=== PATIENT | female | born 1955 | race Two or more races ===

== ENCOUNTER 2020-05-26 05:30 | Day surgery (SDC) | payer OTHER ==
[~2020-05-26 05:30] MED LIST: IRBESARTAN300 MG PO; OMEPRAZOLE40 MG PO; PANADOL EXTRA500 MG PO; SPIRONOLACTONE25 MG PO; TOPROL XL25 M1 PO
[2020-05-26] MEDS ORDERED: MORGIDOX100 MG PO (09:09)
[2020-05-26] MEDS ORDERED: Tylenol #3 PO (09:09)
== END 2020-05-26 12:00 | disposition home or self-care (01) ==
LOC: CIR.AMB 05:30
PROVIDERS: ATTEND Obstetrics & Gynecology
DX: N84.0 Polyp of corpus uteri (principal); Z20.828 Contact with and (suspected) exposure to other viral communicable diseases

== ENCOUNTER 2020-09-01 08:45 | Inpatient (IN) | payer OTHER ==
[~2020-09-01] VITALS: Ht 160 cm; Wt 98.9 kg
[~2020-09-01 08:45] MED LIST changes: +MORGIDOX100 MG PO; +Tylenol #3 PO
[2020-09-11] MEDS ORDERED: Tylenol #3 PO (11:20)
[2020-09-11] MEDS ORDERED: NAPR500T14 PO (11:21)
== END 2020-09-11 12:39 | disposition home or self-care (01) | DRG 743 ==
LOC: O/R 09-08 05:46 → OB/GYN 09-08 07:00 → SURG 09-08 17:30
PROVIDERS: ADMIT Obstetrics & Gynecology; ATTEND Obstetrics & Gynecology
PROC: 0UB70ZZ Excision of Bilateral Fallopian Tubes, Open Approach (ICD-10-PCS; 2020-09-08)
PROC: 0UT20ZZ Resection of Bilateral Ovaries, Open Approach (ICD-10-PCS; 2020-09-08)
PROC: 0TJB8ZZ Inspection of Bladder, Via Natural or Artificial Opening Endoscopic (ICD-10-PCS; 2020-09-08)
PROC: 0UT90ZZ Resection of Uterus, Open Approach (ICD-10-PCS; principal; 2020-09-08 07:00)
DX: D25.1 Intramural leiomyoma of uterus (principal); N72 Inflammatory disease of cervix uteri; N83.312 Acquired atrophy of left ovary; K21.9 Gastro-esophageal reflux disease without esophagitis; G89.18 Other acute postprocedural pain; I10 Essential (primary) hypertension

== ENCOUNTER 2020-09-24 21:14 | Emergency (ER) | payer OTHER ==
[~2020-09-24] VITALS: Ht 160 cm; Wt 98.9 kg
[~2020-09-24 21:14] MED LIST changes: +NAPR500T14 PO
[2020-09-25] MEDS ORDERED: BACTRIM DS TAB1 EACH PO (01:21)
== END 2020-09-25 01:33 | disposition home or self-care (01) ==
LOC: ER 21:14
DX: T81.49XA Infection following a procedure, other surgical site, initial encounter (principal); L02.211 Cutaneous abscess of abdominal wall; B96.4 Proteus (mirabilis) (morganii) as the cause of diseases classified elsewhere; B96.29 Other Escherichia coli [E. coli] as the cause of diseases classified elsewhere; B96.5 Pseudomonas (aeruginosa) (mallei) (pseudomallei) as the cause of diseases classified elsewhere; Z03.818 Encounter for observation for suspected exposure to other biological agents ruled out; Y83.8 Other surgical procedures as the cause of abnormal reaction of the patient, or of later complication, without mention of misadventure at the time of the procedure